=== PATIENT | male | born 1955 | race Two or more races ===

== ENCOUNTER 2018-10-28 04:19 | Inpatient (IN) | payer MEDICARE, OTHER ==
[~2018-10-28] VITALS: Ht 172.7 cm; Wt 103.4 kg
[~2018-10-28 04:19] MED LIST: ALBU18HF2 IH; ASPI-1169 PO; ATOR10TA PO; DAPS100T2 PO; METO25TA20 PO; MULT-24 PO; RANO500T3 PO
[2018-10-28] MEDS ORDERED: DILTIAZEM HCL 25 MG IV ONE ×2 (04:22→04:32)
[2018-10-28] MEDS ORDERED: ONDANSETRON HCL/PF 4 MG/2 ML VIAL ONE ×2 (04:27→05:02)
[2018-10-28] MEDS ORDERED: DILTIAZEM HCL 50 MG IV ONE (04:29)
[2018-10-28] MEDS ORDERED: DILTIAZEM HCL 50 MG IV IV ONE (04:30)
[2018-10-28] MEDS ORDERED: DILTIAZEM HCL IV 125 MG in IV NS 0.9% 100 ML IV PRN (04:30)
[2018-10-28] MEDS ORDERED: ONDANSETRON HCL/PF 4 MG/2 ML VIAL IVP ONE (04:30)
[2018-10-28] MEDS ORDERED: IV NS 0.9% 1,000 ML BAG IV ONE (04:30)
[2018-10-28 04:49] LABS: BASOPHILS % (AUTO) 0.5 % (0.0-2.0); EOSINOPHILS % (AUTO) 4.3 % (0.0-6.0); HEMATOCRIT 45 % (39-51); HEMOGLOBIN 15.2 g/dL (13.5-17.5); LYMPHOCYTES # (AUTO) 1.5 /CMM (0.8-4.8); LYMPHOCYTES % (AUTO) 16.4 % (20.0-44.0); MEAN CORPUSCULAR HGB CONC 34 g/dl (31.0-36.0); MEAN CORPUSCULAR VOLUME 94 fL (80-96); MONOCYTES % (AUTO) 11.1 % (2.0-12.0); NEUTROPHILS # (AUTO) 6.4 /CMM (1.8-8.9); NEUTROPHILS % (AUTO) 67.7 % (43.0-81.0); PLATELET COUNT (AUTO) 174 /CMM (150-450); RED BLOOD CELL COUNT(AUTO) 4.76 MIL/uL (4.5-6.0); WHITE BLOOD COUNT (AUTO) 9.4 K/uL (4.3-11.0)
[2018-10-28] MEDS ORDERED: IOHEXOL-350 100 ML VIAL IV ONE (04:50)
[2018-10-28 04:58] LABS: CALCIUM, SERUM 8.9 mg/dL (8.5-10.1); CARBON DIOXIDE 31 mmol/L (21-32); CHLORIDE 103 mmol/L (98-107); GLUCOSE 122 mg/dL (74-106); POTASSIUM 4.1 mmol/L (3.5-5.1); SODIUM SERUM 138 mmol/L (136-145); UREA NITROGEN, BLOOD 9 mg/dL (7-18)
[2018-10-28 05:04] LABS: ALANINE AMINOTRANSFERASE 37 U/L (12-78); ALBUMIN 3.8 g/dL (3.4-5.0); ALKALINE PHOSPHATASE 62 U/L (46-116); ASPARTATE AMINOTRANSFERASE 23 U/L (15-37); BILIRUBIN,DIRECT 0.1 mg/dL (0.0-0.2); BILIRUBIN,TOTAL 0.7 mg/dL (0.2-1.0); TOTAL PROTEIN, SERUM 6.9 g/dL (6.4-8.2)
[2018-10-28] MEDS ORDERED: ONDANSETRON HCL/PF 4 MG/2 ML VIAL IV ONE (05:30)
[2018-10-28] MEDS ORDERED: AMIODARONE 150 MG/3 ML VIAL IV ONE ×4 (05:48→06:00)
[2018-10-28] MEDS ORDERED: ONDANSETRON HCL/PF 4 MG/2 ML VIAL IVP PRN (06:00)
[2018-10-28] MEDS ORDERED: MAG HYDROX/AL HYDROX/SIMETH 30 ML UDC PO PRN (06:00)
[2018-10-28] MEDS ORDERED: MAGNESIUM HYDROXIDE 30 ML UDC PO PRN (06:00)
[2018-10-28] MEDS ORDERED: DILTIAZEM HCL IV 125 MG in IV D5W 100 ML IV PRN (06:00)
[2018-10-28] MEDS ORDERED: MORPHINE SULFATE INJ 2 MG/ML DISP.SYRIN IV PRN ×2 (06:00→17:00)
[2018-10-28] MEDS ORDERED: TEMAZEPAM 15 MG CAPSULE PO PRN (06:00)
[2018-10-28 06:38] VITALS: BP 144/66
[2018-10-28] MEDS ORDERED: AMIODARONE 900 MG in IV D5W 482 ML IV PRN (07:00)
[2018-10-28] MEDS ORDERED: ALBU8.5H8 IH (07:45)
[2018-10-28] MEDS ORDERED: ASPI-605 PO (07:45)
[2018-10-28] MEDS ORDERED: ROSU20TA2 PO (07:46)
[2018-10-28] MEDS ORDERED: HYDR-4384 PO (07:47)
[2018-10-28 08:00] VITALS: BP 124/77
[2018-10-28] MEDS ORDERED: RIVAROXABAN 10 MG TABLET PO SCH ×2 (08:00)
[2018-10-28] MEDS: PANTOPRAZOLE 40 MG TABLET.DR PO SCH (08:00)
[2018-10-28 08:30] LABS: MAGNESIUM 2.3 mg/dL (1.8-2.4); PHOSPHORUS 2.5 mg/dL (2.5-4.9)
[2018-10-28] MEDS: ASPIRIN 81 MG TAB.CHEW PO SCH (09:15)
[2018-10-28 12:00] VITALS: BP 130/74
[2018-10-28 12:02] VITALS: BP 137/75
[2018-10-28] MEDS ORDERED: ADENOSINE 6 MG/2 ML VIAL IVP ONE (12:26)
[2018-10-28] MEDS: ACETAMINOPHEN 325 MG TABLET PO PRN ×2 (15:31→21:29)
[2018-10-28 16:00] VITALS: BP 114/60
[2018-10-28] MEDS ORDERED: ALBUTEROL FS 2.5 MG/0.5 ML VIAL.NEB NEB PRN (19:30)
[2018-10-28 20:00] VITALS: BP 121/67
[2018-10-28] MEDS ORDERED: ATORVASTATIN 10 MG TABLET PO SCH (22:00)
[2018-10-29] VITALS: BP 116/66
[2018-10-29] MEDS: ACETAMINOPHEN 325 MG TABLET PO PRN (03:19)
[2018-10-29 04:00] VITALS: BP 126/75
[2018-10-29] MEDS: HYDROCODONE/APAP 5/325MG 1 EACH TABLET PO PRN ×2 (04:24→08:34)
[2018-10-29 06:26] LABS: BASOPHILS % (AUTO) 0.3 % (0.0-2.0); EOSINOPHILS % (AUTO) 2.9 % (0.0-6.0); HEMATOCRIT 42 % (39-51); LYMPHOCYTES # (AUTO) 1.3 /CMM (0.8-4.8); LYMPHOCYTES % (AUTO) 12.9 % (20.0-44.0); MEAN CORPUSCULAR HGB CONC 33 g/dl (31.0-36.0); MEAN CORPUSCULAR VOLUME 94 fL (80-96); MONOCYTES # (AUTO) 0.9 /CMM (0.1-1.30); MONOCYTES % (AUTO) 9.4 % (2.0-12.0); NEUTROPHILS # (AUTO) 7.4 /CMM (1.8-8.9); NEUTROPHILS % (AUTO) 74.5 % (43.0-81.0); PLATELET COUNT (AUTO) 164 /CMM (150-450); RED BLOOD CELL COUNT(AUTO) 4.52 MIL/uL (4.5-6.0)
[2018-10-29 06:41] LABS: ALANINE AMINOTRANSFERASE 27 U/L (12-78); ALBUMIN 3.1 g/dL (3.4-5.0); ALKALINE PHOSPHATASE 51 U/L (46-116); ASPARTATE AMINOTRANSFERASE 21 U/L (15-37); BILIRUBIN,TOTAL 0.8 mg/dL (0.2-1.0); CALCIUM, SERUM 8.8 mg/dL (8.5-10.1); CARBON DIOXIDE 28 mmol/L (21-32); CHLORIDE 106 mmol/L (98-107); CREATININE 0.9 mg/dL (0.6-1.3); GLUCOSE 103 mg/dL (74-106); MAGNESIUM 2.5 mg/dL (1.8-2.4); POTASSIUM 4.4 mmol/L (3.5-5.1); SODIUM SERUM 141 mmol/L (136-145); TOTAL PROTEIN, SERUM 6.3 g/dL (6.4-8.2); UREA NITROGEN, BLOOD 14 mg/dL (7-18)
[2018-10-29 07:12] LABS: CHOLESTEROL 120 mg/dL (<200); HDL CHOLESTEROL 31 mg/dL (40-60); LDL 76 mg/dL (0-99); TRIGLYCERIDES 108 mg/dL (30-150)
[2018-10-29] MEDS: PANTOPRAZOLE 40 MG TABLET.DR PO SCH (07:49)
[2018-10-29 08:00] VITALS: BP 136/76
[2018-10-29] MEDS: ASPIRIN 81 MG TAB.CHEW PO SCH (08:07)
[2018-10-29] MEDS ORDERED: ASPIRIN EC 81 MG TABLET.DR PO SCH (09:00)
[2018-10-29] MEDS ORDERED: MULTIVITAMINS,THERAGRAN 1 UDTAB TABLET PO SCH (09:00)
[2018-10-29] MEDS ORDERED: DRONEDARONE HYDROCHLORIDE 400 MG TABLET PO SCH (09:00)
[2018-10-29] MEDS ORDERED: RIVA10TA PO (12:02)
[2018-10-29] MEDS ORDERED: DRON400T2 PO (12:02)
== END 2018-10-29 13:22 | disposition home or self-care (01) | DRG 309 ==
LOC: ER 04:24 → TELE1 06:04 → TELE-TD 06:14 → MEDSG1 10-29 09:07
PROVIDERS: ADMIT Nurse Practitioner Acute Care; ATTEND Nurse Practitioner Acute Care
DX: I48.91 Unspecified atrial fibrillation (principal); D68.59 Other primary thrombophilia; Z87.891 Personal history of nicotine dependence; I25.10 Atherosclerotic heart disease of native coronary artery without angina pectoris; Z98.61 Coronary angioplasty status; Z88.8 Allergy status to other drugs, medicaments and biological substances; Z88.1 Allergy status to other antibiotic agents; Z79.82 Long term (current) use of aspirin; Z79.899 Other long term (current) drug therapy; E78.5 Hyperlipidemia, unspecified; J45.909 Unspecified asthma, uncomplicated; K21.9 Gastro-esophageal reflux disease without esophagitis; Z82.49 Family history of ischemic heart disease and other diseases of the circulatory system; Z79.01 Long term (current) use of anticoagulants; E78.1 Pure hyperglyceridemia; D89.9 Disorder involving the immune mechanism, unspecified
CPT/HCPCS: 36415; 71045-TC; 80048-TC; 80053-TC; 80061-TC; 80076-TC; 83735-TC; 84100-TC; 84439-TC; 84443-TC; 84484-TC; 85025-TC; 85730-TC; 87081-TC; 93307-TC; G0378; J0153; J0282; J2405; J3490; J7030; J7040; J7060; Q9967

== ENCOUNTER 2018-12-23 19:14 | Emergency (ER) | payer OTHER, MEDICARE ==
[~2018-12-23] VITALS: Ht 172.7 cm; Wt 106.1 kg
[~2018-12-23 19:14] MED LIST changes: -ALBU18HF2 IH; +ALBU8.5H8 IH; -ASPI-1169 PO; +ASPI-605 PO; -ATOR10TA PO; +DRON400T2 PO; +HYDR-4384 PO; -METO25TA20 PO; -RANO500T3 PO; +RIVA10TA PO; +ROSU20TA2 PO
--- NOTE | 2018-12-23 19:20 | NUR ---
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 DENIES CP, SOB, N/V, HEADACHE/DIZZYNESS. PT AOx4 RESP EVEN AND UNLABORED. SKIN WARM AND INTACT. VITAL SIGNS STABLE. NO ACUTE DISTRESS NOTED AT THIS TIME. PT PLACED IN GOWN AND ON CONT CARDIAC MONITER. WILL CONTINUE TO MONITER.
--- NOTE | 2018-12-23 19:30 | NUR ---
IV INITATED RIGHT AC, 20 G. LABS DRAWN FROM SITE AND SENT TO LAB. IV IN TACT AND PATENT PLACED ON SL.
--- NOTE | 2018-12-23 19:32 | NUR ---
AT BEDSIDE FOR EVALUATION.
[2018-12-23 20:11] LABS: CALCIUM, SERUM 9.6 mg/dL (8.5-10.1); CARBON DIOXIDE 27 mmol/L (21-32); CHLORIDE 101 mmol/L (98-107); CREATININE 0.9 mg/dL (0.6-1.3); GLUCOSE 89 mg/dL (74-106); POTASSIUM 3.8 mmol/L (3.5-5.1); SODIUM SERUM 139 mmol/L (136-145); UREA NITROGEN, BLOOD 12 mg/dL (7-18)
--- NOTE | 2018-12-23 21:14 | NUR ---
Patient discharged to home in stable condition. Written and verbal after care instructions given. Patient verbalizes understanding of instruction.IV removed. Catheter intact and site benign. Pressure and 4x4 applied to site. No bleeding noted ambulatory with a steady gait.
[2018-12-23 21:15] VITALS: BP 127/69
== END 2018-12-23 21:16 | disposition home or self-care (01) ==
LOC: ER 19:14
DX: R00.2 Palpitations (principal); I48.91 Unspecified atrial fibrillation; I25.10 Atherosclerotic heart disease of native coronary artery without angina pectoris; Z91.14 Patient's other noncompliance with medication regimen; Z88.1 Allergy status to other antibiotic agents; Z60.2 Problems related to living alone; Z79.82 Long term (current) use of aspirin; Z91.018 Allergy to other foods
CPT/HCPCS: 36415; 80048-TC; 84484-TC

== ENCOUNTER 2019-04-28 15:58 | Emergency (ER) | payer SELFPAY ==
[~2019-04-28] VITALS: Ht 177.8 cm; Wt 110.2 kg
--- NOTE | 2019-04-28 16:11 | NUR ---
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 PT AAOX4, VSS. RR EVEN & UNLABORED. DENIES SOB, DIZZINESS, N/V, WEAKNESS @ THIS TIME. PT SEEN & EVAL'D BY DR. GOINS. 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 NSR & WILL CONT TO MONITOR.
[2019-04-28 16:24] LABS: BASOPHILS # (AUTO) 0.1 /CMM (0.0-0.2); BASOPHILS % (AUTO) 1.5 % (0.0-2.0); HEMATOCRIT 47 % (39-51); HEMOGLOBIN 15.7 g/dL (13.5-17.5); LYMPHOCYTES # (AUTO) 2.2 /CMM (0.8-4.8); MEAN CORPUSCULAR HGB CONC 33 g/dl (31.0-36.0); MEAN CORPUSCULAR VOLUME 95 fL (80-96); MONOCYTES # (AUTO) 0.9 /CMM (0.1-1.30); MONOCYTES % (AUTO) 10.1 % (2.0-12.0); NEUTROPHILS # (AUTO) 5.3 /CMM (1.8-8.9); NEUTROPHILS % (AUTO) 61.4 % (43.0-81.0); PLATELET COUNT (AUTO) 228 /CMM (150-450); RED BLOOD CELL COUNT(AUTO) 4.96 MIL/uL (4.5-6.0); WHITE BLOOD COUNT (AUTO) 8.6 K/uL (4.3-11.0)
[2019-04-28] MEDS ORDERED: MAG HYDROX/AL HYDROX/SIMETH 30 ML UDC ONE (16:26)
[2019-04-28] MEDS ORDERED: MORPHINE SULFATE INJ 4 MG/ML DISP.SYRIN ONE (16:27)
[2019-04-28] MEDS ORDERED: ASPIRIN 325 MG TABLET ONE (16:27)
[2019-04-28] MEDS ORDERED: ASPIRIN 325 MG TABLET PO ONE (16:30)
[2019-04-28] MEDS ORDERED: MORPHINE SULFATE INJ 2 MG/ML DISP.SYRIN IV ONE (16:30)
[2019-04-28] MEDS ORDERED: MAG HYDROX/AL HYDROX/SIMETH 30 ML UDC PO ONE (16:30)
[2019-04-28] MEDS ORDERED: NA PHOS,M-B/NA PHOS,DI-BA 1 EA ENEMA RC ONE (16:32)
[2019-04-28 16:45] LABS: CALCIUM, SERUM 9.6 mg/dL (8.5-10.1); CARBON DIOXIDE 27 mmol/L (21-32); CHLORIDE 102 mmol/L (98-107); CREATININE 0.9 mg/dL (0.6-1.3); GLUCOSE 110 mg/dL (74-106); POTASSIUM 3.9 mmol/L (3.5-5.1); SODIUM SERUM 136 mmol/L (136-145); UREA NITROGEN, BLOOD 12 mg/dL (7-18)
[2019-04-28] MEDS ORDERED: MINERAL OIL 133 ML (PYXIS) 1 EA ENEMA RC ONE (17:00)
--- NOTE | 2019-04-28 17:53 | NUR ---
Patient discharged to home in stable condition. Written and verbal after care instructions given. Patient verbalizes understanding of instruction. IV removed. Catheter intact and site benign. Pressure and 4x4 applied to site. No bleeding noted.
[2019-04-28 17:54] VITALS: BP 146/87
== END 2019-04-28 17:55 | disposition home or self-care (01) ==
LOC: ER 15:59
DX: R07.89 Other chest pain (principal); I48.91 Unspecified atrial fibrillation; I25.10 Atherosclerotic heart disease of native coronary artery without angina pectoris; E78.5 Hyperlipidemia, unspecified; J45.909 Unspecified asthma, uncomplicated; E78.00 Pure hypercholesterolemia, unspecified; Z98.890 Other specified postprocedural states; Z95.5 Presence of coronary angioplasty implant and graft; Z88.1 Allergy status to other antibiotic agents; Z91.018 Allergy to other foods; Z60.2 Problems related to living alone; Z79.82 Long term (current) use of aspirin; Z79.899 Other long term (current) drug therapy
CPT/HCPCS: 36415; 71045; 80048; 83690; 84484; 85025; 85378; 93005; 96374; 99284; J2270